=== PATIENT | male | born 1970 | race Two or more races ===

== ENCOUNTER 2020-10-30 15:27 | Outpatient (CLI) | payer OTHER | END 2020-10-30 15:38 | disposition home or self-care (01) | LOC: OFIC 805 15:27 | PROVIDERS: ATTEND Otolaryngology Otology & Neurotology | DX: H65.22 Chronic serous otitis media, left ear (principal); H90.12 Conductive hearing loss, unilateral, left ear, with unrestricted hearing on the contralateral side; H69.82 Other specified disorders of Eustachian tube, left ear ==